=== PATIENT | male | born 1940 | race Caucasian/White ===

== ENCOUNTER 2017-11-14 17:36 | Emergency (ER) | payer OTHER ==
[~2017-11-14] VITALS: Ht 172.7 cm; Wt 70.4 kg
[2017-11-14] MEDS ORDERED: SODIUM CHLORIDE 0.9% 1,000 ML IV ONE (18:05)
[2017-11-14] MEDS ORDERED: ONDANSETRON 2MG/ML, 2ML IVPush ONE (18:30)
[2017-11-14] MEDS ORDERED: SODIUM CHLORIDE FLUSH 10ML SYR IVF ONE (18:30)
[2017-11-14] MEDS ORDERED: PLEASE ENTER ALLERGIES MC SCH ×2 (18:30)
[2017-11-14 18:35] LABS: ASPARTATE AMINO TRANSFERASE 13 U/L (15-37); BLOOD UREA NITROGEN 15 mg/dL (7-18)
[2017-11-14] MEDS ORDERED: ASPI-496 PO (18:51)
[2017-11-14 19:07] LABS: HEMATOCRIT 48.4 % (39.2-51.8); WHITE BLOOD COUNT 9.7 x10^3/uL (3.4-10)
[2017-11-14 19:08] LABS: DIFF TOTAL CELLS COUNTED 100 CELL DIFF
[2017-11-14] MEDS ORDERED: ONDANSETRON 2MG/ML, 2ML ONE (19:15)
[2017-11-14 19:49] LABS: VERIFY COUNTS? YES
[2017-11-14 22:16] VITALS: BP 145/94
== END 2017-11-14 22:19 | disposition home or self-care (01) ==
LOC: ED 21:22
DX: R11.2 Nausea with vomiting, unspecified (principal); R33.9 Retention of urine, unspecified; N40.0 Benign prostatic hyperplasia without lower urinary tract symptoms
CPT/HCPCS: 36415; 51702; 80053; 81003; 83690; 85025; 96361; 96374; 99284; J2405; J7030

== ENCOUNTER 2018-07-27 14:11 | Inpatient (IN) | payer OTHER ==
[2018-07-24 11:37] LABS: ALANINE AMINOTRANSFERASE 31 U/L (12-78); ALBUMIN 3.9 g/dL (3.4-5.0); ANION GAP 7 mmol/L (5-15); CHLORIDE 107 mmol/L (98-107); CREATININE 0.97 mg/dL (0.7-1.3)
[2018-07-24 11:40] LABS: ALKALINE PHOSPHATASE 91 U/L (45-117); BILIRUBIN,TOTAL 0.7 mg/dL (0.2-1.0); TOTAL PROTEIN 6.8 g/dL (6.4-8.2)
[2018-07-24 13:13] LABS: INTERNATIONAL NORMALIZED RATIO 1.1 (0.93-1.1); PROTHROMBIN TIME 11.3 Seconds (9.6-11.5)
[~2018-07-27] VITALS: Ht 171.4 cm; Wt 67.0 kg
[~2018-07-27 14:11] MED LIST: ASPI-496 PO; ATOR40TA78 PO; CLOP75TA PO; SENN1TAB67 PO
[2018-07-27] MEDS ORDERED: LACTATED RINGERS 1,000 ML IV SCH (14:19)
[2018-07-27] MEDS ORDERED: ACETAMINOPHEN 500 MG TABLET PO ONE (14:30)
[2018-07-27] MEDS ORDERED: ONDANSETRON ODT 8 MG PO ONE (14:30)
[2018-07-27] MEDS ORDERED: GABAPENTIN 300 MG CAPSULE PO ONE (14:30)
[2018-07-27 14:54] VITALS: BP 120/77
[2018-07-27 15:01] LABS: ALANINE AMINOTRANSFERASE 24 U/L (12-78); ANION GAP 6 mmol/L (5-15); CALCIUM 9.3 mg/dL (8.5-10.1); CHLORIDE 108 mmol/L (98-107); CREATININE 1.05 mg/dL (0.7-1.3)
[2018-07-27 15:04] LABS: ALKALINE PHOSPHATASE 96 U/L (45-117); BILIRUBIN,TOTAL 0.9 mg/dL (0.2-1.0); TOTAL PROTEIN 7.1 g/dL (6.4-8.2)
[2018-07-27] MEDS ORDERED: LIDOCAINE/PF 1%, 30ML ONE (15:27)
[2018-07-27] MEDS ORDERED: PROTAMINE SULFATE 10 MG/ML, 5ML ONE (15:27)
[2018-07-27] MEDS ORDERED: BUPIVACAINE/PF-EPI 0.5% 1:200K ONE (15:27)
[2018-07-27] MEDS ORDERED: PAPAVERINE 30 MG/ML, 2ML ONE (15:27)
[2018-07-27] MEDS ORDERED: BACITRACIN 50,000 UNIT ONE (15:28)
[2018-07-27] MEDS ORDERED: HEPARIN 1,000 UNITS/ML, 10ML ONE (15:28)
[2018-07-27] MEDS ORDERED: THROMBIN 20,000 UNIT VIAL TP ONE (15:28)
[2018-07-27 15:55] LABS: HEMOGRAM NOTE RECHECKED; MEAN CORPUSCULAR HEMOGLOBIN 30.9 pg (27.5-34.5); MEAN CORPUSCULAR HGB CONC 33.2 g/dL (33.2-36.2); MEAN CORPUSCULAR VOLUME 92.9 fL (81-97); MEAN PLATELET VOLUME 8.3 fL (7.4-10.4); PLATELET COUNT 122 x10^3/uL (130-400); RED BLOOD COUNT 4.68 x10^6/uL (4.38-5.82); RED CELL DISTRIBUTION WIDTH 13.7 % (9.4-14.8)
[2018-07-27 15:57] LABS: MD YES
[2018-07-27 16:02] LABS: <PLATELET ESTIMATE> ADEQUATE; <RBC MORPHOLOGY> NORMAL; LARGE PLATELETS 1+; LYMPH#(MANUAL) 0.47 x10^3/uL (1-3.4); LYMPHS% (MANUAL) 9 % (22-44); MONOS#(MANUAL) 0.05 x10^3/uL (0.3-2.7); MONOS% (MANUAL) 1 % (2-9); SEG#(MANUAL) 4.68 x10^3/uL (1.8-6.8); SEGS% (MANUAL) 90 % (42-75)
[2018-07-27] MEDS ORDERED: FENTANYL PF 250 MCG/5ML ONE (16:06)
[2018-07-27] MEDS ORDERED: MIDAZOLAM 1 MG/ML, 2ML ONE (17:09)
[2018-07-27] MEDS ORDERED: PHENYLEPHRINE 10 MG/ML ONE (17:14)
[2018-07-27] MEDS ORDERED: LIDOCAINE 4%, 4 ML SYR/CANN TP ONE (17:14)
[2018-07-27] MEDS ORDERED: BUPIVACAINE/PF-EPI 0.5% 1:200K INFIL ONE (17:39)
[2018-07-27] MEDS ORDERED: THROMBIN 5,000 UNIT VIAL TP ONE (17:41)
[2018-07-27] MEDS ORDERED: OXYcodone 5 MG/5 ML ORAL.SOL UDC PO PRN (18:30)
[2018-07-27] MEDS ORDERED: MORPHINE SULFATE 4 MG/ML, 1ML IVPush PRN (18:30)
[2018-07-27] MEDS ORDERED: FENTANYL PF 100 MCG/2ML IV PRN (18:30)
[2018-07-27] MEDS ORDERED: ONDANSETRON 2MG/ML, 2ML IV PRN (18:30)
[2018-07-27] MEDS ORDERED: hydrALAzine 20 MG/ML, 1ML IV PRN (18:30)
[2018-07-27] MEDS ORDERED: LABETALOL 5MG/ML, 20ML IV PRN (18:30)
[2018-07-27] MEDS ORDERED: PROMETHAZINE 25 MG/ML, 1ML IV PRN (18:30)
[2018-07-27] MEDS ORDERED: ACETAMINOPHEN 325 MG TABLET PO PRN (18:30)
[2018-07-27] MEDS ORDERED: ENALAPRILAT 1.25 MG/ML, 2ML IV PRN (18:30)
[2018-07-27] MEDS ORDERED: ONDANSETRON ODT 8 MG PO PRN (18:30)
[2018-07-27] MEDS ORDERED: CEFAZOLIN 1,000 MG ONE (18:43)
[2018-07-27] MEDS ORDERED: ROCURONIUM 10MG/ML,5ML ONE (18:43)
[2018-07-27] MEDS ORDERED: NEOSTIGMINE 1 MG/ML, 10ML ONE (18:43)
[2018-07-27] MEDS ORDERED: GLYCOPYRROLATE 0.2MG/1ML, 5ML ONE (18:43)
[2018-07-27] MEDS ORDERED: PROPOFOL 10 MG/ML, 20ML ONE (18:43)
[2018-07-27] MEDS ORDERED: DEXAMETHASONE 4 MG/ML, 1ML ONE (18:43)
[2018-07-27] MEDS ORDERED: SUCCINYLCHOLINE 20 MG/ML, 10ML ONE (18:43)
[2018-07-27] MEDS ORDERED: ONDANSETRON 2MG/ML, 2ML ONE (18:43)
[2018-07-27] MEDS: LACTATED RINGERS 1,000 ML IV SCH (19:02)
[2018-07-27] MEDS ORDERED: ACETAMINOPHEN 650 MG SUPP PR PRN (19:30)
[2018-07-27] MEDS ORDERED: ONDANSETRON 2MG/ML, 2ML IVPush PRN (19:30)
[2018-07-27] MEDS ORDERED: HYDROcodone/APAP 5/325 TABLET PO PRN (19:30)
[2018-07-27] MEDS ORDERED: OXYcodone 5 MG/5 ML ORAL.SOL UDC ONE (19:39)
[2018-07-28] MEDS ORDERED: ONDANSETRON ODT 4 MG ONE (00:39)
[2018-07-28] MEDS: ONDANSETRON ODT 4 MG PO PRN ×2 (00:43→13:37)
[2018-07-28] MEDS ORDERED: ONDANSETRON ODT 4 MG PO PRN (01:00)
[2018-07-28] MEDS: CEFAZOLIN PMX 1GM/50ML 50 ML IVPB SCH ×2 (01:11→09:23)
[2018-07-28 01:31] VITALS: BP 137/86
[2018-07-28] MEDS ORDERED: ASPIRIN 325 MG TABLET EC PO SCH (06:00)
[2018-07-28 06:57] VITALS: BP 126/79
[2018-07-28] MEDS: LACTATED RINGERS 1,000 ML IV SCH (11:16)
[2018-07-28] MEDS ORDERED: OMNIPAQUE 350 MG/ML, 100ML BOTTLE ONE (13:32)
== END 2018-07-28 14:16 | disposition home or self-care (01) | DRG 38 ==
LOC: ORIP 14:11 → 4NOR 21:55
PROVIDERS: ADMIT Surgery; ATTEND Surgery
PROC: 03UN0KZ Supplement Left External Carotid Artery with Nonautologous Tissue Substitute, Open Approach (ICD-10-PCS; 2018-07-27)
PROC: 03CN0ZZ Extirpation of Matter from Left External Carotid Artery, Open Approach (ICD-10-PCS; principal; 2018-07-27 16:30)
DX: I65.22 Occlusion and stenosis of left carotid artery (principal); G81.91 Hemiplegia, unspecified affecting right dominant side; I71.4 Abdominal aortic aneurysm, without rupture; E78.5 Hyperlipidemia, unspecified; M19.90 Unspecified osteoarthritis, unspecified site; G89.29 Other chronic pain; M54.5 Low back pain; F17.210 Nicotine dependence, cigarettes, uncomplicated; J44.9 Chronic obstructive pulmonary disease, unspecified; R11.0 Nausea; R33.9 Retention of urine, unspecified; Z86.73 Personal history of transient ischemic attack (TIA), and cerebral infarction without residual deficits; Z98.42 Cataract extraction status, left eye; Z98.41 Cataract extraction status, right eye
CPT/HCPCS: 36415; 74177; 80053; 85025; 85610; 85730; 86850; 86900; 93005; C1729; G0378; J0690; J1100; J1644; J2250; J2405; J2704; J2710; J2720; J3010; J3490; Q0162; Q9967; C1781; J0330; J2370; J2440; J7120